=== PATIENT | male | born 1960 | race Hispanic/Latino ===

== ENCOUNTER 2018-04-22 13:08 | Outpatient (CLI) | payer OTHER ==
[2018-04-22] MEDS ORDERED: PROVENTIL IH ONE (13:58)
== END 2018-04-22 13:09 | disposition home or self-care (01) ==
LOC: PF 13:08
PROVIDERS: ATTEND Internal Medicine
DX: J44.9 Chronic obstructive pulmonary disease, unspecified (principal)
CPT/HCPCS: 94060; 94640

== ENCOUNTER 2018-07-01 09:44 | Outpatient (CLI) | payer OTHER ==
--- NOTE | 2018-07-01 11:07 | XRay Report ---
XRAY LEFT KNEE 3 VIEWS: 07/01/18 09:44:00 CLINICAL: Disability exam. FINDINGS: Mild patellofemoral joint arthritis with a superior osteophyte. The medial and lateral joints are normal. No fracture or dislocation. No joint effusion. The soft tissues are normal. IMPRESSION: Mild patellofemoral joint osteoarthritis.
--- NOTE | 2018-07-02 02:13 | XRay Report ---
PROCEDURE: XR SPINE LUMBOSACRAL 2-3V HISTORY: ASHTMA, DISABILITY EXAM FINDINGS: AP and lateral views of the lumbar spine were acquired as well as coned-down lateral view o f L5-S1. No fracture is seen in the lumbar spine. There is scoliosis convex right at L2 approximately 8 degree s. There is loss of intervertebral disc space height and endplate remodeling at L5-S1. IMPRESSION: No fracture is seen in the lumbar spine This document is electronically signed by Koffi Scott MD., July 02 2018 02:11:01 AM ET
== END 2018-07-01 09:45 | disposition home or self-care (01) ==
LOC: XRAY 09:44
PROVIDERS: ATTEND Internal Medicine
DX: Z02.71 Encounter for disability determination (principal); J44.9 Chronic obstructive pulmonary disease, unspecified; M17.12 Unilateral primary osteoarthritis, left knee
CPT/HCPCS: 72100